=== PATIENT | female | born 1930 | race Caucasian/White ===

== ENCOUNTER 2017-07-09 09:30 | Outpatient (CLI) | payer MEDICARE ==
[~2017-07-09 09:30] MED LIST: DOCU-28 PO; HYDR25SU32 RC; POLY17PO10 PO
== END 2017-07-09 23:59 | disposition home or self-care (01) ==
LOC: RT 09:30
PROVIDERS: ATTEND Internal Medicine Pulmonary Disease
DX: J45.998 Other asthma (principal)
CPT/HCPCS: 94618